=== PATIENT | male | born 1955 | race Caucasian/White ===

== ENCOUNTER 2016-10-20 09:13 | Inpatient (IN) | payer OTHER ==
[~2016-10-20] VITALS: Ht 180.3 cm; Wt 87.1 kg
[2016-10-20] VITALS (14 sets, daily range): BP systolic 94–146; BP diastolic 56–92
[~2016-10-20 09:13] MED LIST: ASPIRIN81 MG ORAL; CARVEDILOL3.125 MG ORAL; CLARITIN10 M1 ORAL; FISH OIL 1,0001 EAC1 ORAL; FLAXSEED OIL1000 M2 PO; GABAPENTIN300 MG ORAL; GLUCOSAMINE1000 M1 PO; LECITHIN1200 MG PO; LOSARTAN POTASS50 MG ORAL; NORCO 10/3251 EA ORAL; SOMA350 MG PO; VITAMIN B COMP1 EAC5 PO; ZANTAC150 MG ORAL; ZOCOR20 M1 ORAL; ceFAZolin sod 2 GM in D5W 110 ML IVPB ONE
--- NOTE | 2016-10-20 09:28 | Anethesia Preoperative Eval ---
Anesthesia Pre-op PMH/ROS General Date of Evaluation: Oct 20, 2016 Anesthesiologist: Roman ASA Score: ASA 3 Mallampati Score Class I : Soft palate, uvula, fauces, pillars visible Class II: Soft palate, uvula, fauces visible Class III: Soft palate, base of uvula visible Class IV: Only hard plate visible Mallampati Classification: Class II Surgeon: Elicia Diagnosis: Lumbar radiculopathy Surgical Procedure: Anterior lumbar itnerbody fusion L4-S1, post lum decompression, ped screw Anesthesia History: none Family History: no anesthesia problems Allergies: Uncoded Allergies: blood pressure pill (Allergy, Mild, 10/20/16) swelling of lip- pt cannot remember name of blood pressure med Medications: see eMAR Past Medical History Cardiovascular: Reports: HTN, CAD, [place] - 2010, s/p coronary stents, other - HLD , Denies: valve dz, arrhythmia Pulmonary: Denies: asthma, COPD, CARLOS A, other Gastrointestinal/Genitourinary: Reports: GERD, Denies: CRI, ESRD, other Neurologic/Psychiatric: Denies: dementia, CVA, depression/anxiety, TIA, other Endocrine: Denies: DM, hypothyroidism, steroids, other HEENT: Denies: cataract (L), cataract (R), glaucoma, NENANA (L), NENANA (R), other Hematology/Immune: Reports: anemia - chronic, Denies: DVT, bleeding disorder, other Musculoskeletal/Integumentary: Reports: other - cervical radiculopathy, right foot drop, Denies: OA, RA, DJD, DDD, edema PSxH Narrative: lumbar fusion, cervical fusion Anesthesia Pre-op Phys. Exam Physician Exam see chart Constitutional: NAD Cardiovascular: RRR Respiratory: CTA Airway Exam Mallampati Score: Class II MO: full ROM: full Teeth: intact Anesthesia Pre-op A/P Labs see chart Studies Pre-op Studies: EKG - nsr at 71 Risk Assessment & Plan Assessment: ASA III Plan: GA-ETT Status Change Before Surgery: No Pre-Antibiotics Drug: Ancef 2g Given Within 1 Hr of Incision: Yes Time Given: 12:30 CLIFTON PICHARDO M.D. Oct 20, 2016 09:28
[2016-10-20] MEDS ORDERED: NORCO 5-325 TA1 EACH ORAL (10:15)
[2016-10-20] MEDS ORDERED: ATORVASTATIN CA20 MG ORAL (10:15)
[2016-10-20] MEDS ORDERED: Bupivacaine w/Epi 0.25% 30ml Vial INJ ONE (10:16)
[2016-10-20] MEDS ORDERED: Thrombin 5000 units TOPIC ONE ×2 (10:16→14:35)
[2016-10-20] MEDS ORDERED: Vancomycin 1gm inj IVPB ONE (10:17)
[2016-10-20] MEDS ORDERED: Bacitracin 50000 Units Vial ONE ×2 (10:17→14:32)
[2016-10-20] MEDS ORDERED: NS Irrig 1000ml IRRIG ONE (10:17)
[2016-10-20] MEDS ORDERED: CLOPIDOGREL75 MG ORAL (10:20)
[2016-10-20] MEDS ORDERED: TURMERIC ROOT5000 GM MC (10:20)
[2016-10-20] MEDS ORDERED: ASPIRIN81 MG ORAL (10:20)
[2016-10-20] MEDS ORDERED: TURMERIC500 MG PO (10:20)
[2016-10-20] MEDS ORDERED: COQ1050 MG PO (10:20)
[2016-10-20] MEDS ORDERED: AMITRIPTYLINE100 MG ORAL (10:20)
--- NOTE | 2016-10-20 11:22 | Pre-Procedure Note/Attestation ---
Pre-Procedure Note/Attestation Complete Prior to Procedure Procedure Narrative: Stage 1: Anterior Lumbar interbody fusion of L45 and L5S1 with bone morphogenetic protein, hardware removal Stage 2: Posterior pat laminectomy decompression and pedicle screw fixation of L4,5,S1, hardware removal Indications for Procedure Pre-Operative Diagnosis: Failed fusion L45 intractable lbp Attestation I attest that I discussed the nature of the procedure; its benefits; risks and complications; and alternatives (and the risks and benefits of such alternatives ), prior to the procedure, with the patient (or the patient's legal insurance service representative). I attest that, if there was a reasonable possibility of needing a blood transfusion, the patient (or the patient's legal insurance service representative) was given the [place] [employer] standardized written summary, pursuant to the [place] Blood Safety Act ([place] Health and Safety Code # 1645, as amended). I attest that I re-evaluated the patient just prior to the surgery and that there has been no change in the patient's H&P, except as documented below: LINDA ANGEL Oct 20, 2016 11:22
--- NOTE | 2016-10-20 11:24 | Brief Operative Note ---
Immediate Post Operative Note Operative Note Chief Complaint: bilateral leg pain and back pain Pre-op Diagnosis: Failed fusion L45 intractable lbp Procedure: Stage 1: Anterior Lumbar interbody fusion of L45 and L5S1 with bone morphogenetic protein, hardware removal Stage 2: Posterior pat laminectomy decompression and pedicle screw fixation of L4,5,S1, hardware removal Post-op Diagnosis: same as pre-op Findings: consistent w/pre-op dx studies Surgeon: Clint Check Pilot: Helen Anesthesia: general Specimen: none Complications: none Condition: stable Estimated Blood Loss: minimal Drains: none Implant(s) used?: Yes - Nuvasive PEEK Brigade cages x2 sz 14, Synthes screws x6 [id number] LINDA ANGEL Oct 20, 2016 11:24
[2016-10-20] MEDS ORDERED: Surgicel 4in x 8in TOPIC ONE (11:26)
[2016-10-20] MEDS ORDERED: Heparin 5000 units/ml inj ONE ×2 (11:27→14:31)
[2016-10-20] MEDS ORDERED: Norco 5mg/325mg tab ORAL PRN (11:30)
[2016-10-20] MEDS ORDERED: Norco 7.5mg/325mg tab ORAL PRN (11:30)
[2016-10-20] MEDS ORDERED: Chloraseptic Spray 20mL Bottle ORAL PRN (11:30)
[2016-10-20] MEDS ORDERED: HYDROmorphone 1mg/ml Carpuject SUBQ PRN (11:30)
[2016-10-20] MEDS ORDERED: HYDROmorphone 1mg/ml Carpuject IVP PRN (11:30)
[2016-10-20] MEDS ORDERED: Naloxone 0.4mg/ml Inj IVP PRN (11:30)
[2016-10-20] MEDS ORDERED: Metoclopramide 10mg/2ml Inj IVP PRN (11:30)
[2016-10-20] MEDS ORDERED: Milk of Magnesia 30ml Ud ORAL PRN (11:30)
[2016-10-20] MEDS ORDERED: Dexamethasone 4mg/ml vial ONE (12:00)
[2016-10-20] MEDS ORDERED: Metoclopramide 10mg/2ml Inj ONE (12:00)
[2016-10-20] MEDS ORDERED: Propofol 200mg/20ml IV ONE (12:00)
[2016-10-20] MEDS ORDERED: Propofol 1,000mg/ 100ml btl IV ONE (12:00)
[2016-10-20] MEDS ORDERED: NS Irrig 1000ml ONE (12:00)
[2016-10-20] MEDS ORDERED: Midazolam 2mg/2ml Inj ONE (12:00)
[2016-10-20] MEDS ORDERED: Sterile Water Irrig 1000ml IRRIG ONE (12:00)
[2016-10-20] MEDS ORDERED: Zemuron 50mg/5ml Inj IV ONE (12:00)
[2016-10-20] MEDS ORDERED: LR 1000ml ONE (12:00)
[2016-10-20] MEDS ORDERED: Lidocaine 1% MPF 10mg/ml 5ml ONE (12:00)
[2016-10-20] MEDS ORDERED: fentaNYL 250mcg/5ml ONE (12:00)
[2016-10-20] MEDS ORDERED: LR 1000ml 1,000 ML IVLG SCH (12:53)
--- NOTE | 2016-10-20 12:53 | Immediate Post-Op Evaluation ---
Immediate Post-Op Evalulation Immediate Post-Op Evalulation Procedure: Anterior l4-s1 interbody fusion, post dec/ped screws L4-s1 Date of Evaluation: Oct 20, 2016 Time of Evaluation: 17:49 IV Fluids: 3.3L Blood Products: 0 Estimated Blood Loss: 100 Urinary Output: 350 Blood Pressure Systolic: 107 Blood Pressure Diastolic: 62 Pulse Rate: 89 Respiratory Rate: 16 O2 Sat by Pulse Oximetry: 97 Temperature (Fahrenheit): 98.4 Pain Score (1-10): 0 Nausea: No Vomiting: No Complications 0 Patient Status: awake, reacts, patent, none Hydration Status: adequate Drug: Ancef 2g Given Within 1 Hr of Incision: Yes Time Given: 12:30 CLIFTON PICHARDO M.D. Oct 20, 2016 12:53
[2016-10-20] MEDS ORDERED: Hydromorphone 0.5mg/0.5ml inj IVP PRN (13:00)
[2016-10-20] MEDS ORDERED: fentaNYL 100 mcg/2 mL IV PRN (13:00)
[2016-10-20] MEDS ORDERED: Midazolam 2mg/2ml Inj IVP PRN (13:00)
[2016-10-20] MEDS ORDERED: DiphenhydrAMINE 50mg/ml Inj IVP PRN (13:00)
[2016-10-20] MEDS ORDERED: LORazepam Inj 2mg/ml 1ml IV PRN (13:00)
[2016-10-20] MEDS ORDERED: Bupivacaine w/Epi 0.5% 30ml Vial INJ ONE (14:32)
--- NOTE | 2016-10-20 17:48 | 48 Hour Post Anesthesia Eval ---
Post Anesthesia Evaluation Procedure: Anterior l4-s1 interbody fusion, post dec/ped screws L4-s1 Airway: patent Nausea: No Vomiting: No Pain Intensity: 2 Hydration Status: adequate Cardiopulmonary Status: at baseline Mental Status/LOC: patient returned to baseline Post-Anesthesia Complications: 0 Follow-up care needed: N/A - further care as per primary team CLIFTON PICHARDO M.D. Oct 20, 2016 17:48
[2016-10-20] MEDS: Docusate 100mg cap ORAL SCH (18:00)
--- NOTE | 2016-10-20 20:15 | Operative Note - Dictated ---
DATE OF OPERATION: 10/20/2016 SURGEONS: 1. Benson Cervantes M.D. (For the approach). 2. Cabrera Jaramillo M.D. (For the spine procedure). ANESTHESIOLOGIST: Slime Owens M.D. ANESTHESIA: General endotracheal. PREOPERATIVE DIAGNOSES: 1. Disk disease, L4-L5 and L5-S1 (two interspaces). 2. Previous transforaminal lumbar interbody fusion procedure of L4-L5. POSTOPERATIVE DIAGNOSES: 1. Disk disease, L4-L5 and L5-S1 (two interspaces). 2. Previous transforaminal lumbar interbody fusion procedure of L4-L5. OPERATIVE PROCEDURES: 1. Muscle sparing, anterior abdominal extraperitoneal approach for anterior lumbar interbody fusion L4-S1 (two interspaces). 2. Mobilization of left iliac artery and aorta. 3. Mobilization of left iliac vein. 4. Ligation of iliolumbar vein. 5. Mobilization of right iliac vein. 6. Exposure of the anterior surface of the spine at L4-L5 and L5-S1 (two interspaces). 7. MODIFIER 22 Revision Surgery, excision of old transforaminal lumbar interbody fusion prosthesis at L4-L5. Informed Consent: The procedure of anterior access for an anterior lumbar interbody fusion was explained in detail to the patient preoperatively by myself and by Dr. Jaramillo. The risks including hemorrhage, infection, vascular injury, ureteral injury, nerve injury, visceral injury, retrograde ejaculation, and lymphedema were explained in detail. The patient stated that he understood the procedure, its rationale and risks. He had no further questions and accepted the procedures outlined above. Background information, indications for surgery, operative findings, and specimens removed will be contained in Dr. Jaramillo's operative report. Operative Findings Pertinent To The Access: The left iliac vein was adherent to the lateral L5 vertebral body due to osteophyte formation and some adhesions due to the previous TLIF procedure. All remaining structures in the retroperitoneum were normal. Operative Procedure: The patient was brought to the operating room in stable condition. Monitoring was instituted with arterial line, ECG, O2 saturation monitor and blood pressure cuff. A pulse oximeter was placed on the left foot to monitor circulation to the left lower extremity. The patient was induced with anesthesia without any difficulty. The patient was prepared and draped in sterile fashion. The appropriate levels were marked using x-ray an fluoroscopy. A left lower quadrant incision was performed from the midline to the edge of the left rectus muscle starting just above the symphysis pubis and ending just below the level of the umbilicus. The incision was carried down through the subcutaneous tissue to the rectus fascia. The rectus fascia was incised with the cautery with extension into the fibers of the external oblique aponeurosis. Elevation of the rectus fascia away from the anterior surface of the muscle was carried out for a distance of approximately 4 cm both cephalad and caudad. This allowed for retraction of the rectus muscle laterally in order to obtain direct A-P access to the spine. The inferior epigastric vessels were identified and preserved. The posterior rectus sheath was partially incised and carefully from the peritoneum taking care not to enter the peritoneal cavity. The peritoneum was bluntly dissected away from the under surface of the internal oblique muscle. Careful blunt dissection was used to elevate the peritoneum anteriorly until the psoas muscle was identified. The ureter was also identified and swept upwards with the peritoneum and its contents. Further sharp and blunt dissection was used to expose the anterior surface of the left common iliac artery. A Abbott retractor was placed into the retroperitoneum medial to the rectus muscle. A lap sponge was inserted over the psoas muscle and pushed superiorly to keep the abdominal contents out of the way using a [place] retractor. Careful sharp and blunt dissection was used to expose the entire length of the common iliac artery to its origin at the aortic bifurcation. Exposure of the L5-S1 disk was carried out as follows: Dissection along the medial wall of the artery was carried out to expose the common iliac vein, which lies under and slightly to the right of the artery. With extreme care, the vein was also exposed in its entirety and deep dissection carried out to expose the L5-S1 disk space. The middle sacral vessels were carefully clipped and cauterized proximally and distally. The middle sacral vessels were then divided. Any other venous tributaries in the area were controlled with clips and/or cautery. Mobilization of the iliac vessels below the bifurcation was carried out for proper visualization of the anterior surface of the spine. This was done with careful blunt dissection in order to peel away the left common iliac vein from the anterior longitudinal ligament to which it was very closely approximated. Using a combination of sharp and blunt dissection, the left L5 osteophyte was exposed and the left iliac vein eased over and lateral to this L5 osteophyte. This dissection along the anterior surface of the spine was carried out bluntly and without the use of cautery to preserve the sympathetic plexus, which lies anteriorly overlying the aortic bifurcation and extends inferiorly towards the sacral hollow. The entire anterior surface of the L5-S1 disk from right to the left lateral surface was now exposed. Exposure of the L4-L5 disk was carried out as follows: Dissection along the lateral wall of the artery was carried out to expose the lateral border of the left common iliac vein, which lies under and slightly to the right of the artery. With extreme care, the vein was also exposed in its entirety. Deep dissection was carried out to expose the iliolumbar vein. This vein was carefully doubly ligated proximally and distally and transected. Any other small venous tributaries in the area were controlled with cautery and/or clips. This allowed for mobilization of the iliac vessels both anteriorly and to the right to allow proper visualization of the anterior surface of the spine at L4-L5. This was done with careful blunt dissection in order to peel away the common iliac vein from the anterior longitudinal ligament to which it was very closely approximated. After skeletonizing the iliac vessels all the way to the aortic bifurcation, a malleable retractor was placed under the vein in order to elevate it anteriorly together with the iliac artery and the aorta. Careful dissection along the anterior surface of the spine was carried out to preserve the sympathetic chain laterally as well as the sympathetic plexus, which lies anteriorly overlying the aortic bifurcation. Further careful sharp and blunt dissection was carried out to expose the anterior surface of the L4-L5 disk space all the way to its right lateral border. Any segmental vessels lying along the anterior surface of the affected vertebrae were transected between hemoclips and/or cauterized in order to adequately elevate the aorta from the anterior surface of the spine. The psoas muscle was from the lateral border of the spine on the left, using blunt dissection. Use of the electrocautery was kept to a minimum in this area to avoid injury to the sympathetic fibers. After proper skeletonization and mobilization of the vessels and preservation of all vital structures, the exposure was complete and the Abbott-Rosa retractor combination was removed. The table held retractor system was deployed to expose the L5-S1 level as follows: With the rectus muscle retracted laterally, the first retractor blade was inserted on the right to expose that site of the disk space and then on the left to keep the iliac vessels out of the way. A third and fourth retractor blade were placed inferiorly and superiorly. This allowed complete exposure and direct A-P approach to the anterior surface of the spine at L5-S1. A needle was inserted into the disk and an x-ray taken to verify the level and the midline. Dr. Jaramillo proceeded to perform the diskectomy, partial vertebrectomy, and fusion of the L5-S1 level, using the appropriate technique and hardware. Once the L5-S1 level had been instrumented, the retractor blades were removed and redeployed for exposure of the L4-L5 level as follows: The first retractor blade was slipped under the vessels and it's lipped tip brought to the right side of the spine. It was used to elevate the vessels away from the anterior surface of the spine. This allowed exposure and direct A-P approach to the anterior surface of the spine. Another retractor blade was placed on the left side of the spine to complete the approach. Additional blades were placed superiorly and inferiorly. Dr. Jaramillo again proceeded to perform the diskectomy, partial vertebrectomy, and fusion using the appropriate technique and hardware at L4-L5. After the diskectomy and fusion was completed at each level, irrigation with antibiotic solution was carried out. The integrity of the iliac vessels was checked to make sure that there was no tear or thrombosis of the vein and that there was adequate flow through the artery with no evidence of spasm or thrombosis. A further check for hemostasis was made and the integrity of the ureter was verified. The peritoneum was allowed to return to its normal anatomic position and the posterior sheath was closed with a continuous suture of 2-0 Vicryl. The anterior rectus sheath was closed with a continuous suture of #1 Vicryl. A subcuticular/subdermal suture of 2-0 Vicryl was used to approximate the subcutaneous tissue and skin. Steri-Strips and a sterile dressing were applied. Final sponge, needle, and instrument counts were verified as correct x2. Manual and visual suites were correct. Estimated blood loss was 30 mL. The patient remained in the operating room for the subsequent posterior procedure. The patient had +2 to +3 dorsalis pedis and posterior tibial pulses bilaterally. The pulse oximeter on the left foot showed 100% oxygen saturation with a triphasic waveform, consistent with the preoperative baseline. The patient remained in stable condition, under anesthesia, being readied for the next portion of the surgical procedure. Benson Cervantes M.D. DR: SWATHI JOB#: [id number] CC: Cabrera Jaramillo M.D.; Fax#: [phone] [facility]
[2016-10-20] MEDS: NS w/KCl 20mEq 1,000 ML IV SCH (21:46)
[2016-10-20] MEDS: ceFAZolin sod 1 GM in D5W 55 ML IV SCH (22:34)
[2016-10-21] VITALS: BP 103/66
[2016-10-21 04:13] VITALS: BP 120/76
[2016-10-21] MEDS: ceFAZolin sod 1 GM in D5W 55 ML IV SCH ×2 (05:53→13:21)
[2016-10-21] MEDS: NS w/KCl 20mEq 1,000 ML IV SCH ×2 (07:55→17:25)
[2016-10-21 08:00] VITALS: BP 128/79
[2016-10-21] MEDS ORDERED: Losartan 50mg tab ORAL SCH (09:00)
--- NOTE | 2016-10-21 09:15 | Diagnostic Imaging Report ---
Indication: PAIN Technique: XRAY SPINE LUMBAR 2-3V, study including fluoroscopy performed by Dr. Jaramillo. 2 images provided. Comparison: None. Fluoroscopy time: 104.9 seconds DAP: 1.25 mGym2 Findings: Initial image demonstrates a disc spacer at L4-5 pedicle screws in L4 and L5. Subsequent images demonstrate pedicle screws in L3, L4, L5 with posterior fixation bars an anterior screws in the same levels. Disc spacers are noted at L4-5 and L5-S1. Impression: Hardware fusion from L4-S1.
[2016-10-21] MEDS: Docusate 100mg cap ORAL SCH ×2 (09:32→17:12)
[2016-10-21] MEDS: Norco 7.5mg/325mg tab ORAL PRN ×3 (10:52→21:58)
[2016-10-21 12:00] VITALS: BP 125/76
[2016-10-21 16:00] VITALS: BP 118/68
[2016-10-21] MEDS ORDERED: Tubing IV Secondary IV ONE (16:05)
--- NOTE | 2016-10-21 17:27 | History and Physical ---
History of Present Illness General Date patient seen: Oct 21, 2016 Reason for Hospitalization: Consult requested by Dr Jaramillo for medical management in the post op setting Present Illness HPI Pt is a 61 yo Male w/ lumbar spinal disease now s/p Anterior l4-s1 interbody fusion, post dec/ped screws L4-s1 By Dr Jaraimllo 10/20/2016, POD 1 tolerated the operation well w/o complications. Pain well controlled. Ambulated w/ PT. Tolerating PO. Allergies: Uncoded Allergies: blood pressure pill (Allergy, Mild, 10/20/16) swelling of lip- pt cannot remember name of blood pressure med Medication History Scheduled Amitriptyline HCl (Amitriptyline HCl), 50 MG ORAL BEDTIME, (Reported) Aspirin* (Aspirin*), 81 MG ORAL DAILY, (Reported) Atorvastatin Calcium* (Atorvastatin Calcium*), 20 MG ORAL BEDTIME, (Reported) Carisoprodol* (Soma*), 350 MG PO BID, (Reported) Carvedilol* (Carvedilol*), 6.25 MG ORAL EVERY 12 HOURS, (Reported) Clopidogrel* (Clopidogrel*), 75 MG ORAL DAILY, (Reported) Flaxseed (Flaxseed Oil), 1,000 MG PO DAILY, (Reported) Gabapentin* (Gabapentin*), 300 MG ORAL THREE TIMES A DAY, (Reported) Glucosamine Sulfate 2KCL (Glucosamine), 1,000 MG PO BID, (Reported) Lecithin (Lecithin), 1,200 MG PO DAILY, (Reported) Loratadine (Claritin), 10 MG ORAL DAILY, (Reported) Losartan Potassium* (Losartan Potassium*), 50 MG ORAL DAILY, (Reported) [place]-3 Fatty Acids/Fish Oil* (Fish Oil 1,000 Mg Softgel*), 1,200 MG ORAL QID, ( Reported) Ranitidine Hcl* (Zantac*), 150 MG ORAL TWICE A DAY, (Reported) Turmeric Root Extract (Turmeric), 500 MG PO DA, (Reported) Vitamin B Complex (Vitamin B Complex), 1 EACH PO DAILY, (Reported) Scheduled PRN Hydrocodone Bit/Acetaminophen 5-325* ([place] 5-325*), 1 TAB ORAL Q8 PRN for For Pain, (Reported) Miscellaneous Medications Turmeric (Turmeric Root), 5,000 GM MC, (Reported) Ubidecarenone (Coq10), 50 MG PO, (Reported) Discontinued Medications Simvastatin (Zocor), 20 MG ORAL BEDTIME, (Reported) Discontinued Reason: Pt stopped taking med Patient History Healthcare decision maker [place]- Resuscitation status Full Code Advanced Directive on File No Past Medical/Surgical History Past Medical/Surgical History: (1) Lumbar back pain with radiculopathy affecting right lower extremity (2) Lumbar back pain with radiculopathy affecting left lower extremity (3) HTN (hypertension) (4) Hyperlipidemia Family History Family History: Normal Review of Systems Constitutional: Denies: no symptoms, see HPI, chills, sweats, fever, malaise, weakness, other ENT: Denies: no symptoms, see HPI, ear pain, ear discharge, nose pain, nose congestion, throat pain, throat swelling, mouth pain, hearing loss, nasal discharge, other Respiratory: Denies: no symptoms, see HPI, cough, orthopnea, shortness of breath, stridor, wheezing, RODRIGUEZ, sputum, other Cardiovascular: Denies: no symptoms, see HPI, chest pain, edema, palpitations, syncope, PND, other Gastrointestinal: Denies: no symptoms, see HPI, abdominal pain, constipation, diarrhea, nausea, vomiting, melena, hematemesis, other Musculoskeletal: Reports: other Psychiatric: Denies: no symptoms, see HPI, prior hx, anxiety, depressed feelings, emotional problems, SI, HI, hallucinations, other Neurological: Reports: focal weakness - Left foot drop, Denies: no symptoms, see HPI, headache, numbness, paresthesia, seizure, tingling, tremors, syncope, dizziness, other Endocrine: Denies: no symptoms, see HPI, excessive sweating, flushing, intolerance to temperature, increased thirst, increased urine, unexplained weight loss, other Hematologic/Lymphatic: Denies: no symptoms, see HPI, anemia, blood clots, easy bleeding, easy bruising, swollen glands, diathesis, other Physical Exam General Appearance: WD/WN, no apparent distress, alert HEENT: normocephalic, atraumatic, anicteric, PERRL, EOMI, supple, no JVD Neck: non-tender, supple, normal inspection Respiratory/Chest: lungs clear, normal breath sounds, no respiratory distress Cardiovascular/Chest: normal peripheral pulses, normal rate, regular rhythm, no gallop/murmur, no JVD Abdomen: normal bowel sounds, non tender, soft, no organomegaly Extremities: normal capillary refill Neurologic: hr intern II-XII grossly normal, other - left foot drop Musculoskeletal: normal muscle bulk Last 24 Hour Vital Signs Date Time Temp Pulse Resp B/P (MAP) Pulse Ox O2 Delivery O2 Flow Rate FiO2 10/21/16 16:00 98.6 97 20 118/68 99 Room Air 10/21/16 14:25 98.1 10/21/16 14:25 98.1 10/21/16 12:00 98.1 91 19 125/76 96 Room Air 10/21/16 09:32 90 128/79 10/21/16 09:31 128/79 10/21/16 08:25 97.4 10/21/16 08:00 97.4 90 19 128/79 95 Room Air 10/21/16 04:13 97.9 88 20 120/76 97 Nasal Cannula 2.0 10/21/16 00:00 97.3 97 19 103/66 96 Nasal Cannula 2.0 10/20/16 21:05 97.6 71 18 124/81 98 Nasal Cannula 2.0 10/20/16 20:05 97.3 87 16 115/78 98 Nasal Cannula 2.0 10/20/16 19:20 98.0 85 18 109/66 100 Nasal Cannula 3.0 10/20/16 19:06 91 18 121/72 100 Nasal Cannula 3.0 10/20/16 18:54 88 18 118/76 100 Nasal Cannula 3.0 10/20/16 18:46 85 18 138/84 100 Nasal Cannula 3.0 10/20/16 18:30 85 18 146/92 100 Simple Mask 8.0 10/20/16 18:15 83 18 137/89 100 Simple Mask 8.0 10/20/16 18:00 83 18 122/76 100 Simple Mask 8.0 10/20/16 17:54 82 18 115/78 100 Simple Mask 8.0 10/20/16 17:49 83 18 103/68 100 Simple Mask 8.0 10/20/16 17:47 89 16 97 10/20/16 17:44 98.4 89 18 94/56 100 Simple Mask 8.0 Intake and Output 10/21/16 10/22/16 19:00 07:00 Intake Total 600 ml Output Total 1100 ml Balance -500 ml Intake Oral 600 ml Output Urine Total 1100 ml Height (Feet): 5 Height (Inches): 11.00 Weight (Pounds): 192 Medications Current Medications Medications (Trade) Dose Ordered Sig/Magaly Route PRN Reason Start Time Stop Time Status Last Admin Dose Admin Acetaminophen (Tylenol) 650 mg Q4H PRN ORAL headache or temp>101 10/20/16 11:30 11/19/16 11:29 Acetaminophen/ Hydrocodone Bitart ([place] 5/325) 1 tab Q3H PRN ORAL pain score 1-3 10/20/16 11:30 10/27/16 11:29 Acetaminophen/ Hydrocodone Bitart ([place] 7.5/325) 1 ea Q3H PRN ORAL pain score 4-6 10/20/16 11:30 10/27/16 11:29 Acetaminophen/ Hydrocodone Bitart ([place] 7.5/325) 2 ea Q3H PRN ORAL pain scale 7-10 10/20/16 11:30 10/27/16 11:29 10/21/16 14:12 Amitriptyline HCl (Elavil) 50 mg QHS ORAL 10/20/16 21:15 11/19/16 21:14 10/20/16 22:17 Atorvastatin Calcium (Lipitor) 20 mg BEDTIME ORAL 10/20/16 21:15 11/19/16 21:14 10/20/16 21:46 Carisoprodol (Soma) 350 mg TIDPRN PRN ORAL MUSCLE SPASM 10/20/16 11:30 11/19/16 11:29 10/21/16 13:26 Carvedilol (Coreg) 6.25 mg EVERY 12 HOURS ORAL 10/21/16 21:00 11/20/16 20:59 Cetylpyridinium Chloride (Cepacol) 1 lozenge Q2H PRN HERBERTH To Patient Comfort 10/20/16 11:30 11/19/16 11:29 Docusate Sodium (Colace) 100 mg TWICE A DAY ORAL 10/20/16 18:00 11/19/16 17:59 10/21/16 17:12 Fexofenadine HCl (Emely) 60 mg TWICE A DAY ORAL 10/21/16 11:00 11/20/16 10:59 10/21/16 10:51 Fish Oil (Fish Oil) 1,000 mg QID ORAL 10/20/16 21:45 11/19/16 21:44 10/21/16 17:12 Gabapentin (Neurontin) 300 mg THREE TIMES A DAY ORAL 10/20/16 22:00 11/19/16 21:59 10/21/16 17:12 Hydromorphone HCl (Dilaudid) 1 mg Q2H PRN IVP Breakthrough Pain 10/20/16 11:30 10/27/16 11:29 Hydromorphone HCl (Dilaudid) 1 mg Q4H PRN SUBQ Mild Pain (Pain Scale 1-3) 10/20/16 11:30 10/27/16 11:29 Hydromorphone HCl (Dilaudid) 2 mg Q3H PRN SUBQ Severe Pain (Pain Scale 7-10) 10/20/16 11:30 10/27/16 11:29 10/21/16 07:55 Hydromorphone HCl (Dilaudid) 2 mg Q4H PRN SUBQ Moderate Pain (Pain Scale 4-6) 10/20/16 11:30 10/27/16 11:29 Losartan Potassium (Cozaar) 50 mg DAILY ORAL 10/21/16 09:00 11/20/16 08:59 10/21/16 09:31 Magnesium Hydroxide (Mom) 30 ml QIDPRN PRN ORAL Constipation 10/20/16 11:30 11/19/16 11:29 Metoclopramide HCl (Reglan) 10 mg Q6H PRN IVP Nausea & Vomiting 10/20/16 11:30 11/19/16 11:29 Naloxone HCl (Narcan) 0.1 mg PRN PRN IVP RR<12/min, pt unarousable 10/20/16 11:30 11/19/16 11:29 Ondansetron HCl (Zofran) 4 mg Q6H PRN IVP Nausea & Vomiting 10/20/16 11:30 11/19/16 11:29 Phenol/Menthol (Chloraseptic) 1 spray Q3H PRN ORAL To Patient Comfort 10/20/16 11:30 11/19/16 11:29 Prochlorperazine (Compazine) 10 mg Q6H PRN IVP Nausea & Vomiting 10/20/16 11:30 11/19/16 11:29 Ranitidine HCl (Zantac) 150 mg TWICE A DAY ORAL 10/20/16 21:15 11/19/16 21:14 10/21/16 17:12 Sodium Chloride 1,000 ml @ 100 mls/hr Q10H IV 10/20/16 22:00 11/19/16 21:59 10/21/16 07:55 Temazepam (Restoril) 15 mg HSPRN PRN ORAL Insomnia 10/20/16 11:30 10/27/16 11:29 Assessment/Plan Status: doing well Assessment/Plan A) s/p Anterior l4-s1 interbody fusion, post dec/ped screws L4-s1 - 10/20/2016. HNP Lumbar spine disease with radiculopathy Hypertension Hyperlipidemia Depression P) - Admit to in pt - agree with surgery recs and mgt - continue w/ excellent post op care - s/p post op abx - encourage IS - mobilization and ambulation as appropriate - dvt/gi ppx as appropriate - c/w home meds as appropriate - holding fish oil - chem, cbc - diet per surgery - pain control - supportive care FULL CODE DVT PPx - SCD's DISPO - Home in 1-2 days We will continue to follow closely Time of this note may not reflect the time of the clinical encounter Alejandro Bowens MD Oct 21, 2016 17:27
[2016-10-21 19:24] LABS: BASOPHILS % (AUTO) 0.8 % (0.0-2.0); EOSINOPHILS % (AUTO) 0.2 % (0.0-3.0); LYMPHOCYTES % (AUTO) 23.4 % (20.0-45.0); MEAN CORPUSCULAR HEMOGLOBIN 36.2 PG (27.0-31.0); MEAN CORPUSCULAR HGB CONC 36.2 G/DL (32.0-36.0); MEAN CORPUSCULAR VOLUME 100 FL (80-99); MEAN PLATELET VOLUME 7.1 FL (6.5-10.1); MONOCYTES % (AUTO) 13.6 % (1.0-10.0); NEUTROPHILS % (AUTO) 62.1 % (45.0-75.0); PLATELET COUNT 147 K/UL (150-450); RED BLOOD COUNT 3.09 M/UL (4.70-6.10); RED CELL DISTRIBUTION WIDTH 11.3 % (11.6-14.8); WHITE BLOOD COUNT 8.1 K/UL (4.8-10.8)
[2016-10-21 19:37] LABS: ANION GAP 12 (5-15); CALCIUM 8.1 mg/dL (8.6-10.2); CARBON DIOXIDE 26 mEQ/L (20-30); CHLORIDE 99 mEQ/L (98-107); GLOMERULAR FILTRATION RATE > 60 mL/min (>60); HEMOLYSIS 4; POTASSIUM 3.6 mEQ/L (3.4-4.9); SODIUM 137 mEQ/L (135-145)
[2016-10-21 20:00] VITALS: BP 106/65
[2016-10-21] MEDS: Carvedilol 6.25mg Tab ORAL SCH (21:44)
[2016-10-22] VITALS: BP 126/78
--- NOTE | 2016-10-22 00:30 | Operative Note - Dictated ---
DATE OF OPERATION: 10/20/2016 SURGEON: Cabrera Jaramillo M.D., Orthopaedic Spine Surgeon. ANESTHESIOLOGIST: Slime Ashby M.D. LEVELS PERFORMED: First level is L4-L5 and the second level is L5-S1. MULE TENDER SURGEON: For both stage 1 and stage 2, Dr. Benson Cervantes. ANESTHESIA: General endotracheal anesthesia. PREOPERATIVE DIAGNOSES: 1. Intractable back pain. 2. Intractable leg pain. 3. Worsening radiculopathy. 4. Weakness. 5. Herniated nucleus pulposus, L4-L5 and L5-S1 herniation. 6. Neural foraminal stenosis, L4-L5 and L5-S1 herniation. POSTOPERATIVE DIAGNOSES: 1. Intractable back pain. 2. Intractable leg pain. 3. Worsening radiculopathy. 4. Weakness. 5. Herniated nucleus pulposus, L4-L5 and L5-S1 herniation. 6. Neural foraminal stenosis, L4-L5 and L5-S1 herniation. PROCEDURES PERFORMED: 1. Radical anterior lumbar intervertebral L4-L5 and L5-S1 discectomy. 2. Anterior lumbar interbody fusion using NuVasive 14-mm 8-degree cage, and bone morphogenetic protein with allograft [place] bone 10cc x2 3. Anterior lumbar plating and fixation at L4-L5 and for level L5-S1 using screws size 6 mm x5, 45 mm length. 4. Anterior retroperitoneal exposure. 5. Supervision and interpretation of intraoperative fluoroscopy. 6. Supervision and interpretation of somatosensory-evoked potential and free running EMG monitoring. ESTIMATED BLOOD LOSS: A 350 mL. COMPLICATIONS: None. INDICATIONS FOR THE PROCEDURE: The patient is a 61-year-old male who presents for intractable back pain and radiculopathy which is well documented in our clinical chart and records. We had a long discussion with Donnell regarding definitive surgical treatment options. We had a long discussion with the patient regarding the risks, alternatives, and benefits of procedure. Our description of the risks included a discussion in person as well as a signed consent which detailed all pertinent risks and the procedure itself. Briefly, our discussion included but was not limited to infection, bleeding, pseudarthrosis, spinal cord injury, neurovascular injury, dural tear, CSF leak, neuropathy, paralysis, permanent weakness/dropfoot, paresthesias, blindness, palsy and weakness. The patient understood there may be a need for revision surgery or additional procedures. Approach-related complications including dysphonia, dysphagia, blindness, permanent vocal cord and neural injury, hematoma, swallowing and breathing difficulty; medical complications including liver, kidney, shock, and cardiopulmonary failure; anesthesia complications including , swelling, damage to the musculature, larynx , esophagus, trachea, blood vessels and muscles and lungs during this surgical procedure. Injury to deeper structures may be temporary or permanent. The patient understood these and elected to proceed. A written and verbal consent was given. We discussed the pros and cons of all the alternatives. We discussed the uncertainties associated with the decision. Afterwards I assessed the patients understanding and explored their preferences. All questions were answered and no guarantees were given. Medical clearance was obtained prior to surgery. OPERATIVE FINDINGS: Broad-based disc herniation at L4-L5 and L5-S1 was encountered, which encroached on the thecal sac and neural foraminal elements therein. This L4-L5 and L5-S1 disc was acute in nature and not calcified. It was mobile and free floating and resected easily. There was also neural foraminal stenosis at L4-L5 and L5-S1. DESCRIPTION OF PROCEDURE: Under the benefit of general endotracheal anesthesia and with the assistance of the entire operative team, the patient was moved from the [facility] onto the operative table in the supine position on a radiolucent frame. The head was secured and positioned appropriately. Bilateral arm secured with Gel Pads and foam and all bony prominences were padded. The bilateral lower extremity SCD and DANIEL hose were placed for DVT prophylaxis. A surgical timeout was called which corroborated our planned procedure. Preoperative antibiotics were administered within 30 minutes of the incision for prophylaxis. Using lateral radiography, the operative levels were delineated. An incision was marked based on our interpretation of lateral radiography and afterwards the body was prepped and draped in the usual sterile manner. The family was notified that we were ready to commence surgery and were called in the waiting room hourly for updates. An incision was based on our lateral fluoroscopic image to center the incision at the L4-L5 interspace. The wound was prepped and draped in the usual sterile fashion. Using a scalpel, a standard retroperitoneal exposure was performed by our surgeon, Dr. Cervantes, and this is delineated in a separate operative note. After appropriate exposure at the L4-L5 disc space, we next turned our attention towards our radical discectomy. This was performed in standard fashion first beginning with a gentle mobilization of all superficial soft tissue overlying the disc space with Kittners. After this was performed, we marked our midline and confirmed our disc space on AP and lateral fluoroscopy. Next, using a #10 blade long-handled scalpel, the disc was resected from the endplates in a box discectomy technique. Next using Ortiz elevators, the disc was mobilized off each endplate. After this, using a large Leksell rongeurs, the entire disc was removed from the intervertebral space. All residual disc and cartilagenous endplates were resected using a combination of small and medium curettage, pituitaries, size 4 and size 6 Kerrison rongeurs. Next, the endplates were distracted in a parallel fashion using the [place] assembly line worker and a 7.5 Thandle. At this point, the PLL was resected using a small curette and a Kerrison 4 rongeur. Next the endplates were resected down to bleeding subchondral bone using a ring and box curette. For any residual bleeding which we encountered at this point, this was maintained and controlled with a combination of FloSeal, Gelfoam, and bipolar cautery. Afterwards, Tisseel was used to seal the discectomy site dorsally. Next I then trialed the interspace for height, width and depth. This was confirmed on fluoroscopy and once satisfied with our fit, we loaded and inserted a NuVasive cage size 14-mm 8-degree with bone morphogenetic protein and with allograft [place] bone under AP and lateral fluoroscopy. AP and lateral fluoroscopy confirmed excellent placement at the L4-L5 interspace. Afterwards, we turned our attention towards plating from the Nuvasive Brigade Interlock system. This anterior lumbar plating and fixation at L4-L5 using Synthes pedicle screws of size 6 mm and length 45 mm. Final radiographs confirmed appropriate placement of all hardware, screws, and our NuVasive cages along with a mandaen of the lumbar lordosis. Afterwards, Tisseel was used to seal the discectomy site ventrally. FloSeal and Zosyn antibiotics were placed directly on the anterior fusion site. SECOND LEVEL: L5-S1. After appropriate exposure at the L4-L5 disc space, we next turned our attention towards our radical discectomy. This was performed in standard fashion first beginning with a gentle mobilization of all superficial soft tissue overlying the disc space with Kittners. After this was performed, we marked our midline and confirmed our disc space on AP and lateral fluoroscopy. Next using a #10 blade long-handled scalpel, the disc was resected from the endplates in a box discectomy technique. Next, using Ortiz elevators, the disc was mobilized off each endplate. After this, using a large Leksell rongeurs, the entire disc was removed from the intervertebral space. All residual disc and cartilaginous endplates were resected using a combination of small and medium curettage, pituitaries, size 4 and size 6 Kerrison rongeurs. Next the endplates were distracted in a parallel fashion using the [place] assembly line worker and a 7.5 Thandle. At this point, the PLL was resected using a small curette and a Kerrison 4 rongeur. Next the endplates were resected down to bleeding subchondral bone using a ring and box curette. For any residual bleeding which we encountered at this point, this was maintained and controlled with combination of FloSeal, Gelfoam and bipolar cautery. Afterwards, Tisseel was used to seal the discectomy site dorsally. Next, I then trialed the interspace for height , width and depth. This was confirmed on fluoroscopy and once satisfied with our fit, we loaded and inserted a NuVasive cage size #14 mm with bone morphogenetic protein and with allograft [place] bone under AP and lateral fluoroscopy. AP and lateral fluoroscopy confirmed excellent placement at the L4-L5 and L5-S1 interspace. Afterwards, we turned our attention towards plating from the NuVasive Brigade Interlock system. This anterior lumbar plating and fixation at L5-S1 using #5 screws of size 6 mm of 45 mm length. Final radiographs confirmed appropriate placement of all hardware, screws, and our NuVasive cages along with mandaen of the lumbar lordosis. Afterwards, Tisseel was used to seal the discectomy site ventrally. FloSeal and Zosyn antibiotics were placed directly on the anterior fusion site. The wounds were copiously irrigated with antibiotic impregnated saline. Afterwards, FloSeal was placed to address residual bleeding. Powdered antibiotics were directly poured into the wound to provide for direct antibiosis. Next, I turned my attention to closure. Fascial closure was performed with 1-0 Vicryl suture. Subcutaneous tissues were reapproximated with 2-0 Vicryl. The superficial subcutaneous skin was closed with running Monocryl and Dermabond. Dressings consisted of Tegaderm and 4 x 4 gauze. The patient tolerated the procedure well and after discussion with our surgeon and our anesthesiologist, we made the determination to proceed with stage 2 of 2, our posterior-based approach. The details of stage 1 of the surgery were related to the patients family/representatives upon the conclusion of the procedure in the family waiting room. Stage 2 of 2. DATE OF OPERATION: 10/20/2016 SURGEON: Cabrera Jaramillo M.D., Orthopaedic Spine Surgeon. MULE TENDER SURGEON: Benson Cervantes M.D. ANESTHESIA: General endotracheal anesthesia. PREOPERATIVE DIAGNOSES: 1. Intractable back pain. 2. Intractable leg pain. 3. Worsening radiculopathy. 4. Weakness. 5. Herniated nucleus pulposus, L4-L5 and L5-S1 herniation. 6. Neural foraminal stenosis, L4-L5 and L5-S1. POSTOPERATIVE DIAGNOSES: 1. Intractable back pain. 2. Intractable leg pain. 3. Worsening radiculopathy. 4. Weakness. 5. Herniated nucleus pulposus, L4-L5 and L5-S1 herniation. 6. Neural foraminal stenosis, L4-L5 and L5-S1. PROCEDURES PERFORMED: 1. Bilateral sided Carter laminectomy/Lucas-Casillas osteotomy, and complete facetectomy at L4-L5 and L5-S1. 2. L4-L5 and L5-S1 posterolateral fusion using allograft bone, local autograft, and residual bone morphogenetic protein. 3. Percutaneous pedicle screw fixation at L4-L5 and L5-S1 using five screws of Synthes, 45 mm length of 6 mm diameter. 4. Confirmation of pedicle screws placement using neural monitoring. 5. Use of intraoperative microscope. 6. Supervision and interpretation of intraoperative fluoroscopy. 7. Supervision and interpretation of somatosensory-evoked potential and free running EMG monitoring. ESTIMATED BLOOD LOSS: 150 total mL. COMPLICATIONS: None. INDICATIONS FOR THE PROCEDURE: The patient is a 61-year-old male who presents for stage 2 in regard to his intractable back pain and radiculopathy. This operative note details the second stage of our surgery. Prior to surgery, we had a long discussion with Donnell regarding definitive surgical treatment options. We had a long discussion with the patient regarding the risks, alternatives, and benefits of procedure. Our description of the risks included a discussion in person as well as a signed consent which detailed all pertinent risks and the procedure itself. Briefly, our discussion included but was not limited to infection, bleeding, pseudarthrosis, spinal cord injury, neurovascular injury, dural tear, CSF leak, neuropathy, paralysis, permanent weakness/dropfoot, paresthesias, blindness, palsy and weakness. The patient understood there may be a need for revision surgery or additional procedures, approach-related complications including dysphonia, dysphagia, blindness, permanent vocal cord and neural injury, hematoma, swallowing and breathing difficulty; medical complications including liver, kidney, shock, and cardiopulmonary failure; anesthesia complications including , swelling, damage to the musculature, larynx, esophagus, trachea, blood vessels and muscles and lungs during this surgical procedure. Injury to deeper structures may be temporary or permanent. The patient understood these and elected to proceed. A written and verbal consent was given. We discussed the pros and cons of all the alternatives. We discussed the uncertainties associated with the decision. Afterwards I assessed the patients understanding and explored their preferences. All questions were answered and no guarantees were given. This now delineates the second stage of the procedure. OPERATIVE FINDINGS: A significant amount of neural foraminal encroachment along the thecal sac and neural foraminal elements therein. This neural foraminal stenosis at L4-L5 was more than appreciated on the MRI. DESCRIPTION OF PROCEDURE: Under the benefit of general endotracheal anesthesia and with the assistance of the entire operative team, the patient was moved from the radiolucent operative table in the prone position onto a [place]t frame. The head was secured and positioned appropriately. Bilateral arm secured with Gel Pads and foam and all bony prominences were padded. The bilateral lower extremity SCD and DANIEL hose were replaced for DVT prophylaxis. A surgical timeout was called which corroborated our planned procedure. Preoperative antibiotics were administered within 30 minutes of the incision for prophylaxis. Using lateral radiography, the operative levels were delineated. An incision was marked based on our interpretation of anterior, posterior, and lateral radiography and afterwards the body was prepped and draped in the usual sterile manner. The family was notified that we were ready to commence surgery and were called in the waiting room hourly for updates. An incision was based on our anterior, posterior, and lateral fluoroscopic image to center the incision at the L4-L5 interspace. The wound was prepped and draped in the usual sterile fashion. Using a scalpel, a midline incision was made and the subcutaneous tissue was mobilized so that within the fascia, two Corrina based incisions were made, one incision on the right side manuela focusing on his pedicle at L4-L5 through a percutaneous stab wound approach. All pedicles were cannulated in the exact same fashion for each level. This was performed in the following manner. The second incision was made slightly off midline and geared towards his L4-L5 interspace approached. Using Jamshidi needles under direct AP and lateral fluoroscopic visualization, I approached the L4-L5 pedicles with Jamshidi needles making sure to leave clearance along the medial pedicle boundary/wall, and next we advanced our bilateral pedicle screw entry points under AP and lateral fluoroscopy at both our pedicles bilaterally. Next, percutaneous screws were loaded on theright and left hand side and on the contralateral side,. Screws were inserted in percutaneous fashion and afterwards these screws were stimulated. Next, a halina was lordosed and placed percutaneously through the incision. Next, we turned our attention to our Lucas-Casillas type osteotomy, facetectomy, and decompression. This was performed at each level in the exact same fashion. Based on AP and lateral fluoroscopy, we centered this incision over the facet joints at L4-L5 of the contralateral side. This was taken down through the skin and subcutaneous tissues until the overlying pars facet joints of L4-L5 and L5-S1 were visualized under microscopic visualization. There was severe pressure on this neural foramina as palpated with the [place] dental and a Stacy ball probe. The pars was then visualized on the contralateral side and this was carefully resected along with the lamina and superior articular process using a Banjo Rishabh AM8 drill bit. This was completely resected using a Lucas-Casillas type osteotomy and medial laminar removal and facetectomy. There was a significant amount of bleeding which we encountered at this point and this was maintained and controlled with a combination of FloSeal, Gelfoam, and bipolar cautery. After complete resection of the facet joints, we noticed the lateral thecal sac margin and the neural elements. Next, I turned my attention to the stimulation of pedicle screws. All pedicle screws were stimulated with somatosensory evoked potentials ranging over 20 milliampere with no response. Afterwards percutaneous rods from the Synthes pedicle screw system were inserted and placed percutaneously and locking caps were placed. Final radiographs confirmed appropriate placement of all hardware, screws, and our NuVasive cages along with mandaen of the lumbar lordosis. The wounds were copiously irrigated with antibiotic-impregnated saline. Afterwards, FloSeal was placed to address residual bleeding. Powdered antibiotics were directly poured into the wound to provide for direct antibiosis. Next I turned my attention to closure. Fascial closure was performed with 1-0 Vicryl suture. Subcutaneous tissues were reapproximated with 2-0 Vicryl. The superficial subcutaneous skin was closed with a running Monocryl and Dermabond. Dressings consisted of Tegaderm and 4 x 4 gauze. The patient tolerated the procedure well and will now be admitted to the spine floor for further observation. The details of the entire surgery were related to the patients family/representatives upon the conclusion of the procedure in the family waiting room. ANESTHESIOLOGIST: Slime Ashby M.D. Cabrera Jaramillo M.D. DR: Krysta JOB#: [id number] CC: SANYA
[2016-10-22] MEDS: Norco 7.5mg/325mg tab ORAL PRN ×3 (02:19→16:36)
[2016-10-22] MEDS: NS w/KCl 20mEq 1,000 ML IV SCH ×2 (04:00→13:24)
[2016-10-22 05:00] VITALS: BP 117/67
[2016-10-22 08:00] VITALS: BP 130/68
[2016-10-22] MEDS: Docusate 100mg cap ORAL SCH ×2 (08:01→16:59)
[2016-10-22] MEDS: Carvedilol 6.25mg Tab ORAL SCH (08:03)
[2016-10-22 12:00] VITALS: BP 129/68
[2016-10-22 16:00] VITALS: BP 120/77
--- NOTE | 2016-10-22 18:19 | Discharge Summary ---
Discharge Summary Hospital Course Date of Admission Oct 20, 2016 at 09:13 Date of Discharge Oct 22, 2016 at 17:25 Admitting Diagnosis Lumbar spine disease, hardware failure HPI Pt is a 61 yo Male w/ lumbar spinal disease now s/p Anterior l4-s1 interbody fusion, post dec/ped screws L4-s1 By Dr Jaramillo 10/20/2016, tolerated the operation well w/o complications. Pain well controlled. Ambulated w/ PT. Tolerating PO. POD 2 pt was ambulatory, Passing flatus and tolerating PO. Discharge Condition Upon Discharge: stable Discharge Disposition Patient was discharged to Home (01) Discharge Diagnoses: (1) HNP (herniated nucleus pulposus), cervical (2) Lumbar back pain with radiculopathy affecting right lower extremity (3) Lumbar back pain with radiculopathy affecting left lower extremity (4) HTN (hypertension) (5) Hyperlipidemia Discharge Instructions Discharge Instructions Follow up with: PCP and Surgery 1 week Services Upon Discharge: outpatient therapy Diet: regular Activity: as tolerated For Surgical Patients Clean and Dry: surgical site Dressing Care: keep dry and clean May shower: No Contact your physician for: bleeding, pain, tenderness, redness, swelling, yellowish discharge in the op. site Alejandro Bowens MD Oct 22, 2016 18:19
[2016-10-22] MEDS ORDERED: Losartan 50mg tab ORAL SCH (21:00)
--- NOTE | 2016-10-22 21:00 | Discharge Summary ---
DATE OF ADMISSION: 10/20/2016 DATE OF DISCHARGE: 10/22/2016 PROCEDURE PERFORMED DURING ADMISSION: Anterior and posterior lumbar fusion, L4-L5 and L5-S1. REASON FOR ADMISSION: Retained hardware, failed lumbar fusion, L4-L5. HOSPITAL COURSE/TREATMENT RENDERED: DISCHARGE PHYSICAL EXAM: 1. Patient was ambulating with and without the assistance of physical therapy. 2. Prior to discharge home incision was clean and dry with minimal swelling. 3. Follows commands. 4. Alert and oriented. 5. Oreilly discontinued, voiding. 6. Incentive spirometer at bedside. 7. IVF hep locked. MOTOR: Demonstrates expected postoperative bulk and tone. Moves biceps, triceps, and deltoid musculature on command. Moves hip flexors, quadriceps, tibialis anterior, EHL, gastrocsoleus musculature on command as well. TREATMENT RENDERED: 1. Daily nursing care. 2. Physical Therapy. 3. Occupational Therapy. 4. Intravenous medications. 5. Oral medications. 6. Daily postoperative examinations by Spine surgery team. CONDITION OF PATIENT ON DISCHARGE: The condition on discharge is stable for discharge to home. DISCHARGE INSTRUCTIONS: Our specific instructions relating to physical activity, medications diet and follow-up care are detailed in our standard operative folder and were given to this patient prior to surgery. We will however summarize these briefly as stated below. Regarding physical activity we would like the patient to limit their flexion, extension and rotation. We also require a limitation on their bending lifting and twisting. All medication has been called in prior to surgery to their pharmacy of choice. They can resume their regular diet once tolerated. We would like them to shower and limit soaking the wound in a tub/Jacuzzi/the ocean for a period of one month or until the incision is completely healed. We will have them follow up in our office in three weeks time for their regularly scheduled appointment. They understand to call our office tomorrow to schedule the time for their three week followup appointment. The patient will notify us should they experience any increase in the severity of pain, redness/swelling/ or drainage from their incision. Cabrera Jaramillo M.D. DR: Alfonzo JOB#: [id number] CC:
== END 2016-10-22 17:25 | disposition home or self-care (01) | DRG 460 ==
LOC: SDSOVERFLO 09:13 → 3E 20:44
PROC: 0SB20ZZ Excision of Lumbar Vertebral Disc, Open Approach (ICD-10-PCS; principal; 2016-10-20 11:00)
PROC: 0SB40ZZ Excision of Lumbosacral Disc, Open Approach (ICD-10-PCS; principal; 2016-10-20 11:00)
PROC: 0SP004Z Removal of Internal Fixation Device from Lumbar Vertebral Joint, Open Approach (ICD-10-PCS; principal; 2016-10-20 11:00)
PROC: 0SG00A0 Fusion of Lumbar Vertebral Joint with Interbody Fusion Device, Anterior Approach, Anterior Column, Open Approach (ICD-10-PCS; principal; 2016-10-20 11:00)
PROC: 0SG30A0 Fusion of Lumbosacral Joint with Interbody Fusion Device, Anterior Approach, Anterior Column, Open Approach (ICD-10-PCS; principal; 2016-10-20 11:00)
PROC: 01NB0ZZ Release Lumbar Nerve, Open Approach (ICD-10-PCS; principal; 2016-10-20 11:00)
PROC: 0SP304Z Removal of Internal Fixation Device from Lumbosacral Joint, Open Approach (ICD-10-PCS; principal; 2016-10-20 11:00)
DX: M51.16 Intervertebral disc disorders with radiculopathy, lumbar region (principal); I10 Essential (primary) hypertension; M96.0 Pseudarthrosis after fusion or arthrodesis; M48.06 Spinal stenosis, lumbar region; M48.07 Spinal stenosis, lumbosacral region; E78.5 Hyperlipidemia, unspecified; I25.10 Atherosclerotic heart disease of native coronary artery without angina pectoris; Z95.5 Presence of coronary angioplasty implant and graft; I25.2 Old myocardial infarction; K21.9 Gastro-esophageal reflux disease without esophagitis
CPT/HCPCS: 36415; 72020; 76001; 80048; 85025; 86850; 86900; 86901; 87081; 94003; 94150; J2250; J2765